=== PATIENT | female | born 1985 | race Caucasian/White ===

== ENCOUNTER 2020-09-28 16:47 | Emergency (ER) | payer OTHER, SELFPAY ==
[2020-09-28 17:18] VITALS: BP 119/78; PULSE 79; RESP 16; TEMP 36.8; O2SAT 100; BMI 29.5
--- NOTE | 2020-09-28 18:20 | ED.SKABFB ---
HPI - Skin/Abscess/Foreign Bdy General Chief complaint: Skin/Abscess/Foreign Body Stated complaint: abscess Time Seen by Provider: 09/28/20 17:39 Source: patient Mode of arrival: ambulatory History of Present Illness HPI narrative: 35-year-old female with a past medical history of asthma presenting to the ED complaining of cyst to right cheek x8 years, however today popped and became erythematous. Denies fever, chills. Related Data Previous Rx's Medication Instructions Recorded cephalexin 500 mg PO QID 7 Days #28 cap 09/28/20 Allergies Allergy/AdvReac Type Severity Reaction Status Date / Time No Known Allergies Allergy Verified 09/28/20 17:26 [No Known Allergies*] Review of Systems Review of Systems: Constitutional: No Fever, No Chills Skin: +cyst Yes all other systems are reviewed and are negative [facility] Past Medical History Attestation statement: The following information was validated with the patient. Medical History (Updated 09/28/20 @ 18:25 by AGAPITO Claudio) Asthma Social History Social History Advance Directives: No Advance Directives Information Provided: No Physical Exam Vital Signs: Vital Signs: Last Vital Signs Temp 98.3 F 09/28/20 17:18 Pulse 79 09/28/20 17:18 Resp 16 09/28/20 17:18 BP 119/78 09/28/20 17:18 Pulse Ox 100 09/28/20 17:18 Body Mass Index 29.5 Const: General: cooperative, healthy appearing, comfortable and no acute distress Orientation/consciousness: patient oriented x3 Limitations: no limitations HENMT: Head: Yes normal to inspection Ears: hearing grossly normal bilaterally General nose exam: Normal external nose present Face and sinus: Yes normal facial exam Eyes: General: appearance normal, both eyes and all related structures EOM: EOMs intact bilaterally Neck: Neck: Yes normal visual inspection and Yes no meningeal signs Resp: Effort & Inspection: normal respiratory effort Cardio: Rate: regular rate Heart sounds: S1 normal heart sound present and S2 normal heart sound present Skin: Other: +small open cyst to right cheek with partial capsule visible. No fluctuance or induration. Mild superficial erythema. Rashes: no rashes Neuro: General: patient oriented x3 and no meningeal signs Gait exam (Neuro): Normal gait present Extrem: General: Yes normal to inspection Procedures Abscess I/D Site: face Side (if applicable): right Local Anesthetic: lidocaine 1% Amount of anesthesia used (mL): 2 MDM - Skin/Abscess/Foreign Bdy MDM Narrative Medical decision making narrative: 35-year-old female with a past medical history of asthma presenting to the ED complaining of cyst to right cheek x8 years, however today popped and became erythematous. On exam vital signs stable cyst noted to right cheek with partial capsule visible. Will attempt capsule removal Discharge Plan Discharge Clinical Impression: Cyst Patient Disposition: Home, Self-Care Instructions: Cyst (ED) Additional Instructions: The cyst capsule was partly removed today from her face. Keflex as an antibiotic, take as prescribed. It is important for you to follow-up with a singeing torch operator. If area begins look infected, is red, there is drainage, you fevers please return to the ED Hoy le quitaron parcialmente la c?psula del quiste de la khoa. Keflex mamadou antibi?jaz, morris seg?n lo prescrito. Es importante que hagas un seguimiento con un dermat?logo. Si el ?uli comienza a verse infectada, est? enrojecida, hay secreci?n, tiene fiebre, regrese al servicio de urgencias Prescriptions: New cephalexin 500 mg capsule 500 mg PO QID 7 Days Qty: 28 RF: 0 Referrals: Asmita Holguin PA [Physician Client Relations Specialist] - 2 days Deuce Almendarez MD [Physician] - 2 days Bobby Herbert MD [Physician] - 2 days Linette Huntley NP [Nurse Practitioner] - 2 days
[2020-09-28] MEDS: Lidocaine HCl 1 % MPF 5 ML VIAL SUBCUT (18:36)
== END 2020-09-28 18:44 | disposition home or self-care (01) ==
PROVIDERS: Emergency Provider Emergency Medicine; PCP Pediatrics
DX: L72.9 Follicular cyst of the skin and subcutaneous tissue, unspecified (principal); R51.9 Headache, unspecified
CPT/HCPCS: 10060; 99284

== ENCOUNTER 2021-03-28 11:59 | Emergency (ER) | payer OTHER, SELFPAY | END 2021-03-28 14:43 | disposition left against medical advice (07) | PROVIDERS: Emergency Provider Emergency Medicine; PCP Pediatrics | DX: O20.9 Hemorrhage in early pregnancy, unspecified (principal); Z3A.01 Less than 8 weeks gestation of pregnancy ==

== ENCOUNTER 2021-03-29 18:25 | Emergency (ER) | payer OTHER, SELFPAY ==
--- NOTE | ~2021-03-29 | US_ITS ---
EXAMINATION: US OBSTETRICAL ULTRASOUND CLINICAL INFORMATION: 3 days of vaginal bleeding and abdominal tenderness. Evaluate for ectopic . COMPARISON: None. LMP: 02/18/2021. Gestational age by maternal dates is 5 weeks, 5 days. Estimated date of delivery by maternal dates is 2021. TECHNIQUE: Ultrasound of the maternal pelvis is performed using transabdominal and transvaginal transducers. Transvaginal imaging is performed due to inadequate visualization transabdominally. M-mode Doppler is also performed. FINDINGS: There are 2 intrauterine gestational sacs, each with their own chorion evident. * Mean diameter of gestational sac 1/fetus A: 0.82 cm, corresponding to gestational age of 5 weeks, 3 days. A normal-appearing yolk sac is present. No pole, or cardiac activity. * Mean diameter gestational sac 2/fetus B: 0.66 cm, corresponding to gestational age of 5 weeks, 2 days. A normal-appearing yolk sac is present. No pole or cardiac activity. No perinephric gestational hemorrhage. MATERNAL ADNEXA: The right maternal ovary measures 2.6 x 2.2 x 2.7 cm. There is a corpus luteum measuring 1.6 cm. The left maternal ovary measures 3.2 x 1.9 x 2.0 cm. There is a corpus luteum measuring 2 cm. There is no significant maternal adnexal mass. Trace pelvic free fluid. US/US OB transvaginal IMPRESSION: * There are 2 separate intrauterine gestational sacs compatible with a diamniotic, dichorionic . This is further supported by corpus lutea present within each ovary. * No pole is yet identified within either gestational sac, orbits not abnormal this stage of . * No evidence of ectopic .
--- NOTE | ~2021-03-29 | US_ITS ---
EXAMINATION: US OBSTETRICAL ULTRASOUND CLINICAL INFORMATION: 3 days of vaginal bleeding and abdominal tenderness. Evaluate for ectopic . COMPARISON: None. LMP: 02/18/2021. Gestational age by maternal dates is 5 weeks, 5 days. Estimated date of delivery by maternal dates is 2021. TECHNIQUE: Ultrasound of the maternal pelvis is performed using transabdominal and transvaginal transducers. Transvaginal imaging is performed due to inadequate visualization transabdominally. M-mode Doppler is also performed. FINDINGS: There are 2 intrauterine gestational sacs, each with their own chorion evident. * Mean diameter of gestational sac 1/fetus A: 0.82 cm, corresponding to gestational age of 5 weeks, 3 days. A normal-appearing yolk sac is present. No pole, or cardiac activity. * Mean diameter gestational sac 2/fetus B: 0.66 cm, corresponding to gestational age of 5 weeks, 2 days. A normal-appearing yolk sac is present. No pole or cardiac activity. No perinephric gestational hemorrhage. MATERNAL ADNEXA: The right maternal ovary measures 2.6 x 2.2 x 2.7 cm. There is a corpus luteum measuring 1.6 cm. The left maternal ovary measures 3.2 x 1.9 x 2.0 cm. There is a corpus luteum measuring 2 cm. There is no significant maternal adnexal mass. Trace pelvic free fluid. US/US OB <= 14 weeks fetus IMPRESSION: * There are 2 separate intrauterine gestational sacs compatible with a diamniotic, dichorionic . This is further supported by corpus lutea present within each ovary. * No pole is yet identified within either gestational sac, orbits not abnormal this stage of . * No evidence of ectopic .
[2021-03-29 19:12] VITALS: BP 128/63; PULSE 90; RESP 16; TEMP 36.1; O2SAT 100; BMI 30.1
[2021-03-29 21:23] LABS: MANUAL DIFF FLAG NO
[2021-03-29 21:26] LABS: Basophils Absolute Auto 0.1 X10*3/uL (0.0-0.2); Basophils Percent Auto 0.3 % (0-2); Eosinophils Absolute Auto 0.2 X10*3/uL (0.0-0.4); Eosinophils Percent Auto 1.5 % (0-4); Hematocrit 39.4 % (37.0-47.0); Hemoglobin 13.1 g/dl (12.0-16.0); Imm Gran Abs Auto 0.05 X10*3/uL (0.00-0.03); Imm Gran Pct Auto 0.3 % (0.0-0.4); Lymphocytes Absolute Auto 2.2 X10*3/uL (1.2-4.9); Lymphocytes Percent Auto 15.7 % (20-40); Mean Corpuscular HGB Conc 33.2 g/dl (31.0-35.0); Mean Corpuscular Hemoglobin 29.4 pg (27.0-33.0); Mean Corpuscular Volume 88.5 fL (80.0-98.0); Monocytes Percent Auto 7.3 % (2-11); Neutrophils Absolute Auto 10.7 x10*3/uL (2.0-8.3); Neutrophils Percent Auto 74.9 % (45-73); Platelet Count 274 X10*3/uL (160-400); Red Blood Count 4.45 X10*6/uL (4.20-5.50); Red Cell Distribution Width 12.8 % (11.0-16.0); White Blood Count 14.3 X10*3/uL (4.8-10.8)
[2021-03-29 21:42] LABS: Appearance Urine CLEAR; Color Urine YELLOW; Glucose Urine UA NEG (NEG); Leukocyte Esterase Urine NEG (NEG); Nitrite Urine NEG (NEG); PH 5.5 (5.0-8.0); Specific Gravity - Urine >= 1.030 (1.005-1.025); UACC Culture Trigger NO; Urine Blood 3+ (NEG); Urine Ketones 5 MG/DL (NEG); Urine Protein 1+ MG/DL (NEG-TRACE)
[2021-03-29 21:48] LABS: UPreg QC Valid YES; Urine Pregnancy POSITIVE (NEGATIVE)
[2021-03-29 21:49] LABS: Alanine Aminotransferase 13 U/L (0-31); Albumin Level 4.1 g/dL (3.5-5.0); Alkaline Phosphatase 63 U/L (39-117); Anion Gap 11 (12-20); Aspartate Amino Transferase 15 U/L (5-31); Bilirubin Total 0.6 mg/dL (0.0-1.0); Blood Urea Nitrogen 11 mg/dL (9-16); Calcium 9.4 mg/dL (8.4-10.2); Carbon Dioxide 23 mmol/L (22-29); Chloride 106 mmol/L (96-108); Creatinine Clr Calc Pharmacy 98.7; Estimated Glomerular Filt Rate > 60; Glucose Random 76 mg/dL (60-115); Potassium 4.1 mmol/L (3.3-5.1); Sodium 136 mmol/L (135-145); Total Protein 7.1 g/dL (6.5-8.0)
[2021-03-29 23:11] LABS: Bacteria Urine 1+ /LPF; Mucus Urine TRACE /LPF; Squamous Epithelial Cell Urine 3+ /LPF
[2021-03-29 23:12] LABS: WBC Urine 0 /HPF (0-4)
--- NOTE | 2021-03-29 23:22 | PC.NURSE ---
pt a&o, no sob or chest pain. pt reports she been bleeding for the last three days. She states this is similar to her past mischarges. Labs and urine collected and sent.
[2021-03-30 00:03] LABS: HCG Quantitative 26909 mIU/mL
[2021-03-30 01:04] VITALS: BP 119/62; PULSE 79; RESP 15; TEMP 36.9; O2SAT 99
--- NOTE | 2021-03-30 01:16 | PC.NURSE ---
pt reports not wearing full pad but pantie liners. She has had to change at least three times. pt reports no pain.
--- NOTE | 2021-03-30 02:19 | ED_ITS ---
HPI - Female Genitourinary General Chief complaint: Vaginal Bleeding Stated complaint: Bleeding (6 weeks ) Time Seen by Provider: 03/29/21 23:11 Source: patient Mode of arrival: ambulatory Limitations: language barrier ( Bhut[place] speaking only) History of Present Illness HPI Narrative: 36-year-old female, with 2 miscarriages in the past who presents to the emergency department for evaluation -related bleeding. The patient states that her last menstrual period was 2020 with an estim ated gestational age of 5 weeks 5 days. The patient states that 3 days prior she noticed vaginal bleeding. She describes the bleeding as pain take spotting mainly when she wiped. She states however over the past 1-2 days she has had increased bleeding with soaking through 3 pads per day. She has had lower abdominal pain which she describes as mild to moderate pressure. She denied lightheaded or dizziness. She states that she had nausea with no vomiting. Patient was concerned that the bleeding increased therefore she came to the emergency department for evaluation. Related Data Previous Rx's Medication Instructions Recorded cephalexin 500 mg capsule 500 mg PO QID 7 Days #28 cap 09/28/20 Allergies Allergy/AdvReac Type Severity Reaction Status Date / Time No Known Allergies Allergy Verified 09/28/20 17:26 [No Known Allergies*] Review of Systems Review of Systems: Yes all other systems are reviewed and are negative [facility] Past Medical History [facility] Narrative: Past medical history: asthma, G4, P1, 2 miscarriages, LMP 02/18/2021. Past surgical history cholecystectomy and ovarian cyst. social history: She denies tobacco, alcohol and drug use. Medical History Asthma Social History Social History Patient Tobacco Use Status: Never used Tobacco Use of substances other than those prescribed or required for medical reasons: No Advance Directives: No Advance Directives Information Provided: Yes Patient : Yes Physical Exam Vital Signs: Vital Signs: Last Vital Signs Temp 98.5 F 03/30/21 01:04 Pulse 79 03/30/21 01:04 Resp 15 03/30/21 01:04 BP 119/62 03/30/21 01:04 Pulse Ox 99 03/30/21 01:04 BMI result Body Mass Index 30.1 Const: General: cooperative and no acute distress Orientation/consciousness: oriented to person and oriented to place Leyva itations: no limitations HENMT: Head: Yes normal to inspection, Yes normocephalic and Yes atraumatic Ears: external ears normal General nose exam: Normal external nose present Face and sinus: Yes normal facial exam Mouth: Normal oral and palatal mucosa present Throat: Yes posterior oropharynx normal Eyes: General: appearance normal, both eyes and all related structures Pupils: Equal, round and reactive pupils present Neck: Neck: Yes normal visual inspection, Yes no lymphadenopathy, Yes trachea midline and Yes supple Chest: Chest palpation & inspection: normal inspection of the chest and normal palpation of entire chest wall Resp: Effort & Inspection: normal respiratory effort and able to speak in complete sentences Auscultation: clear to auscultation bilaterally Cardio: Rate: regular rate Rhythm: regular rhythm Heart sounds: S1 normal heart sound present, S2 normal heart sound present and no murmurs GI: Inspection: Yes normal to inspection Palpation (GI): Soft to palpation, Tenderness to palpation present (GI) suprapubicly ( [id number]) and no guarding Auscultation: normal bowel sounds : General: Yes no CVA tenderness Back/Spine/Pelvis: Back: no CVA tenderness Skin: General skin exam: no rashes or lesions noted Neuro: General: oriented to person and oriented to place Cranial nerves: Yes CN's II-XII intact bilaterally and Yes Equal, round and reactive pupils present Cognition (Neuro): normal cognition Motor exam (neuro): 5/5 motor strength present throughout Extrem: General: Yes normal to inspection Psych: Appearance: grossly normal Speech and movement: Normal speech and movement present Affect: normal affect Attitude: cooperative Thought process: Normal thought process present Thought content: Normal thought content present Course Course Course Narrative: 36-year-old female G4, P1, 2 miscarriages, who is with confirm [facility] and is 5 weeks 5 days gestation by dates Who presents with lower abdominal pain and vaginal bleeding x3 days. physical examination did reveal suprapubic tenderness otherwise was unremarkable. Laboratory evaluation : [place] [address]. Normal comprehensive metabolic panel. Positive urine test. Quantitative beta-hCG was 26,909. ultrasound revealed twin pregnancies that correlate with the patient's gestational age based on last menstrual period. There was no evidence for ectopic and no obvious source for the patient's bleeding. I did discuss this with the patient. Patient was advised to continue to use pads, to rest and to continue taking her vitamins. She was advised to follow-up with her [facility] OBGYN provider for repeat quantitative beta HCG and for further evaluation. MDM - Female Genitourinary Lab Data Result diagrams: 03/29/21 21:14 03/29/21 21:14 Labs: Lab Results 03/29/21 03/29/21 03/29/21 Range/Units 21:14 21:14 21:20 WBC 14.3 H (4.8-10.8) X10*3/uL RBC 4.45 (4.20-5.50) X10*6/uL Hgb 13.1 (12.0-16.0) g/dl Hct 39.4 (37.0-47.0) % MCV 88.5 (80.0-98.0) fL MCH 29.4 (27.0-33.0) pg MCHC 33.2 (31.0-35.0) g/dl RDW 12.8 (11.0-16.0) % Plt Count 274 (160-400) X10*3/uL MPV 11.0 (9.4-12.3) fL Immature Gran % (Auto) 0.3 (0.0-0.4) % Neut % (Auto) 74.9 H (45-73) % Lymph % (Auto) 15.7 L (20-40) % Allen % (Auto) 7.3 (2-11) % Eos % (Auto) 1.5 (0-4) % Baso % (Auto) 0.3 (0-2) % Lymph # (Auto) 2.2 (1.2-4.9) X10*3/uL Allen # (Auto) 1.0 (0.1-1.2) X10*3/uL Eos # (Auto) 0.2 (0.0-0.4) X10*3/uL Baso # (Auto) 0.1 (0.0-0.2) X10*3/uL Abs Immat Gran (auto) 0.05 H (0.00-0.03) X10*3/uL Absolute Neuts (auto) 10.7 H (2.0-8.3) x10*3/uL Absolute Nucleated RBC 0.000 (0.0-0.012) X10*3/uL Nucleated RBC % (auto) 0.0 (0.0-0.2) /100WBC Sodium 136 (135-145) mmol/L Potassium 4.1 (3.3-5.1) mmol/L Chloride 106 (96-108) mmol/L Carbon Dioxide 23 (22-29) mmol/L Anion Gap 11 L (12-20) BUN 11 (9-16) mg/dL Creatinine 0.79 (0.5-1.4) mg/dL Estim Creat Clear Calc 98.7 Estimated GFR > 60 Random Glucose 76 (60-115) mg/dL Calcium 9.4 (8.4-10.2) mg/dL Total Bilirubin 0.6 (0.0-1.0) mg/dL AST 15 (5-31) U/L ALT 13 (0-31) U/L Alkaline Phosphatase 63 (39-117) U/L Total Protein 7.1 (6.5-8.0) g/dL Albumin 4.1 (3.5-5.0) g/dL Beta HCG, Quant 30896 mIU/mL Urine Color YELLOW Urine Appearance CLEAR Urine pH 5.5 (5.0-8.0) Ur Specific [place] >= 1.030 H (1.005-1.025) Urine Protein 1+ H (NEG-TRACE) MG/DL Urine Glucose (UA) NEG (NEG) MG/DL Urine Ketones 5 (NEG) MG/DL Urine Blood 3+ H (NEG) Urine Nitrite NEG (NEG) Ur Leukocyte Esterase NEG (NEG) Urine RBC 1-4 (0) /HPF Urine WBC 0 (0-4) /HPF Ur Squamous Epith Cells 3+ /LPF Urine Bacteria 1+ /LPF Urine Mucus TRACE /LPF Urine Test (NEGATIVE) 03/29/21 Range/Units 21:20 WBC (4.8-10.8) X10*3/uL RBC (4.20-5.50) X10*6/uL Hgb (12.0-16.0) g/dl Hct (37.0-47.0) % MCV (80.0-98.0) fL MCH (27.0-33.0) pg MCHC (31.0-35.0) g/dl RDW (11.0-16.0) % Plt Count (160-400) X10*3/uL MPV (9.4-12.3) fL Immature Gran % (Auto) (0.0-0.4) % Neut % (Auto) (45-73) % Lymph % (Auto) (20-40) % Allen % (Auto) (2-11) % Eos % (Auto) (0-4) % Baso % (Auto) (0-2) % Lymph # (Auto) (1.2-4.9) X10*3/uL Allen # (Auto) (0.1-1.2) X10*3/uL Eos # (Auto) (0.0-0.4) X10*3/uL Baso # (Auto) (0.0-0.2) X10*3/uL Abs Immat Gran (auto) (0.00-0.03) X10*3/uL Absolute Neuts (auto) (2.0-8.3) x10*3/uL Absolute Nucleated RBC (0.0-0.012) X10*3/uL Nucleated RBC % (auto) (0.0-0.2) /100WBC Sodium (135-145) mmol/L Potassium (3.3-5.1) mmol/L Chloride (96-108) mmol/L Carbon Dioxide (22-29) mmol/L Anion Gap (12-20) BUN (9-16) mg/dL Creatinine (0.5-1.4) mg/dL Estim Creat Clear Calc Estimated GFR Random Glucose (60-115) mg/dL Calcium (8.4-10.2) mg/dL Total Bilirubin (0.0-1.0) mg/dL AST (5-31) U/L ALT (0-31) U/L Alkaline Phosphatase (39-117) U/L Total Protein (6.5-8.0) g/dL Albumin (3.5-5.0) g/dL Beta HCG, Quant mIU/mL Urine Color Urine Appearance Urine pH (5.0-8.0) Ur Specific [place] (1.005-1.025) Urine Protein (NEG-TRACE) MG/DL Urine Glucose (UA) (NEG) MG/DL Urine Ketones (NEG) MG/DL Urine Blood (NEG) Urine Nitrite (NEG) Ur Leukocyte Esterase (NEG) Urine RBC (0) /HPF Urine WBC (0-4) /HPF Ur Squamous Epith Cells /LPF Urine Bacteria /LPF Urine Mucus /LPF Urine Test POSITIVE H (NEGATIVE) Discharge Plan Discharge Clinical Impression: Vaginal bleeding affecting early , Twin Patient Disposition: Home, Self-Care Instructions: Threatened Miscarriage (ED) Additional Instructions: Your blood work revealed that you are not anemic with a hemoglobin 13.1 and hematocrit of 39.4. Your urine test was positive. Your quantitative beta HCG was 26,909. The ultrasound that you had today did not reveal a clear source for the bleeding that your experiencing. The ultrasound also revealed twin that correlate with the expected gestational age based on your last menstrual period. Continue to use pads, do not use tampons. Rest. Continue to take your vitamins. Follow-up with your [facility] OBGYN providers to discuss further management of your twin pregnancies. Follow the threatened miscarriage instructions. Follow-up with your doctor in 2 days. Please return to the emergency department if your symptoms get worse or if you develop any symptoms that are concerning to you. Prescriptions: No Action cephalexin 500 mg capsule 500 mg PO QID 7 Days Qty: 28 RF: 0
[2021-03-30 02:46] VITALS: RESP 16
== END 2021-03-30 02:53 | disposition home or self-care (01) ==
PROVIDERS: Emergency Provider Emergency Medicine Emergency Medical Services; PCP Pediatrics
DX: O20.9 Hemorrhage in early pregnancy, unspecified (principal); O30.041 Twin pregnancy, dichorionic/diamniotic, first trimester; Z3A.01 Less than 8 weeks gestation of pregnancy
CPT/HCPCS: 36415; 76801; 76817; 80053; 81001; 81025; 84702; 85025; 99284